=== PATIENT | female | born 1960 | race Caucasian/White ===

== ENCOUNTER 2016-09-06 09:27 | Outpatient (CLI) ==
[2016-01-26 12:57] VITALS: BMI 23.1
--- NOTE | 2016-09-06 10:53 | CT ---
Exam: CT examination of the chest with intravenous contrast. Comparison: Chest x-ray performed on 06/26/2015. Reason for exam: Chest pain. FINDINGS: 3 mm nodule in the left upper lobe seen on axial image number 28. There 3 mm focus of no dular parenchymal thickening in the right middle lobe seen on axial image number 37. No pneumothorax, pleural effusion, or focal consolidation. The heart is not enlarged. The aorta is normal in course and caliber. No osteoblastic or osteolytic lesions. There is mild levoscoliosis of the thoracic spine. The liver, gallbladder, spleen, adrenal glands, and pancreas are unremarkable. Impression: 1. 3 mm nodule in the left upper lobe with a 3 mm focus of chondral parenchymal thickening in the r ight middle lobe. Recommend 6-month follow-up to document stability. 2. No acute imaging findings are seen within the chest.
== END 2016-09-06 09:28 | disposition home or self-care (01) ==
LOC: RAD 09:27
PROVIDERS: ATTEND Family Medicine
DX: R07.9 Chest pain, unspecified (principal)